=== PATIENT | female | born 1995 | race Caucasian/White ===

== ENCOUNTER 2023-10-06 14:03 | Day surgery (SDC) | payer BC, MEDICAID ==
[2023-09-29 15:21] LABS: BASOPHILS # (AUTO) 0.1 X10'3 (0-0.2); BASOPHILS % (AUTO) 1.3 % (0-1); EOSINOPHILS # (AUTO) 0.1 X10'3 (0-0.9); EOSINOPHILS % (AUTO) 2.5 % (0-6); LYMPHOCYTES # (AUTO) 1.6 X10'3 (1.1-4.8); LYMPHOCYTES % (AUTO) 35.8 % (21-51); MEAN CORPUSCULAR HEMOGLOBIN 25.8 PG (27.0-31.0); MEAN CORPUSCULAR HGB CONC 32.6 g/dL (33.0-36.5); MEAN PLATELET VOLUME 8.7 FL (7.4-10.4); MONOCYTES # (AUTO) 0.5 X10'3 (0-0.9); MONOCYTES % (AUTO) 11.5 % (2-12); NEUTROPHILS # (AUTO) 2.2 X10'3 (1.8-7.7); NEUTROPHILS % (AUTO) 48.9 % (42-75); PRE OP HEMATOCRIT 38.4 % (35.0-45.0); PRE OP HEMOGLOBIN 12.5 g/dL (12.0-16.0); PRE OP PLATELET COUNT 315 X10'3 (140-440); PRE OP WHITE BLOOD COUNT 4.4 10'3 (4.8-10.8); RED BLOOD COUNT 4.86 X10'6 (4.20-5.60); RED CELL DISTRIBUTION WIDTH 14.8 % (11.5-14.5)
[2023-09-29 15:30] LABS: URINE HCG NEGATIVE (NEG)
[2023-09-29 15:36] LABS: ALBUMIN 3.9 G/DL (3.4-5.0); ALKALINE PHOSPHATASE 92 IU/L (46-116); BLOOD UREA NITROGEN 11 MG/DL (7-18); BUN/CREATININE RATIO 13.8 (10.0-20.0); CALCIUM 9.2 MG/DL (8.5-10.1); CHLORIDE 104 MMOL/L (99-107); PRE OP ALT 35 U/L (30-65); PRE OP ANION GAP 7 (8-16); PRE OP AST 17 U/L (10-37); PRE OP BILIRUB, TOTAL 0.8 MG/DL (0.0-1.0); PRE OP GLUCOSE 102 MG/DL (70-104); PRE OP POTASSIUM 3.8 MMOL/L (3.4-5.1); PRE OP SODIUM 138 MMOL/L (135-145); TOTAL CARBON DIOXIDE 26.9 MMOL/L (24-32); TOTAL PROTEIN 7.8 G/DL (6.4-8.2); eGFR 85 ML/MIN
[2023-10-06] VITALS (11 sets, daily range): BP systolic 118–157; BP diastolic 69–100; PULSE 57–86; RESP 9–17; TEMP 97.3; O2SAT 99–100
[~2023-10-06] VITALS: Ht 165.1 cm; Wt 102.9 kg
[2023-10-06] MEDS: cefazolin 2gm/D5W 100mL 100 ML IV ONE (05:30)
[~2023-10-06 14:03] MED LIST: HYDR-3964 PO; ONDA-245 PO
[2023-10-06] MEDS: famotidine 20mg tablet PO ONE (14:48)
[2023-10-06] MEDS: ringers solution, lacted 1,000 ML IV SCH (14:48)
[2023-10-06] MEDS: INDOCYANINE GREEN 25 MG/10 ML VIAL IV ONE (14:48)
[2023-10-06] MEDS ORDERED: BUPIVAcaine/PF 2.5mg/ml (0.25%) 10ml vial ONE (15:23)
[2023-10-06] MEDS ORDERED: LIDOcaine 1% 30ml preserv. free vial ONE (15:23)
[2023-10-06] MEDS ORDERED: sevoflurane 250ml liquid IH ONE (17:12)
[2023-10-06] MEDS ORDERED: midazolam 1 mg/ML 2ml injection ONE (17:17)
[2023-10-06] MEDS ORDERED: fentaNYL/PF 50MCG/1 ML 2ML syringe ONE (17:17)
[2023-10-06] MEDS: BUPIVAcaine 0.25% w/Epi /PF 30ml vial IJ ONE (17:38)
[2023-10-06] MEDS ORDERED: ringers solution, lacted 1,000 ML IV SCH (17:55)
[2023-10-06] MEDS ORDERED: labetalol 20mg/4ml (5mg/ml) syringe IV PRN (17:55)
[2023-10-06] MEDS ORDERED: ondansetron/PF 4mg/2ml inj IV PRN (17:55)
[2023-10-06] MEDS ORDERED: meperidine/PF 25mg/ml syringe IV PRN (17:55)
[2023-10-06] MEDS ORDERED: hydrALAZINE 20mg/ml inj. IV PRN (17:55)
[2023-10-06] MEDS ORDERED: morphine 2 MG/ML inj. syringe IV PRN (17:55)
[2023-10-06] MEDS ORDERED: morphine 4 MG/ML inj SYRINge IV PRN (17:55)
[2023-10-06] MEDS ORDERED: acetaminophen 1,000mg/100ml IV 100 ML IV ONE (17:55)
[2023-10-06] MEDS ORDERED: rocuronium 10mg/ml inj IV ONE (18:23)
[2023-10-06] MEDS ORDERED: neostigmine methylsulfate 1 MG/ML 10ml vial ONE (18:23)
[2023-10-06] MEDS ORDERED: propofol inj 20 ML IV ONE (18:23)
[2023-10-06] MEDS ORDERED: dexamethasone sod phosphate 4mg/ml inj. ONE (18:23)
[2023-10-06] MEDS ORDERED: ondansetron/PF 4mg/2ml inj ONE (18:24)
[2023-10-06] MEDS ORDERED: glycopyrrolate 0.2mg/ml inj ONE (18:24)
[2023-10-06] MEDS: meperidine/PF 25mg/ml syringe IV PRN ×2 (18:34→18:59)
[2023-10-06] MEDS: oxyCODONE/APAP 5-325mg tablet PO PRN (19:35)
== END 2023-10-06 19:46 | disposition home or self-care (01) ==
LOC: PRE-OP 14:03
PROVIDERS: ATTEND Surgery
DX: K80.20 Calculus of gallbladder without cholecystitis without obstruction (principal); Z79.899 Other long term (current) drug therapy; Z98.890 Other specified postprocedural states; Z87.891 Personal history of nicotine dependence
CPT/HCPCS: 36415; 47563; 80053; 81025; 82948; 85025; J0690; J1100; J2175; J2250; J2405; J2704; J2710; J3010; J3490; J7030; J7120; S2900; Z7506; Z7508; Z7512; A4215; A4618; A7000; S0020